=== PATIENT | female | born 2000 | race Caucasian/White ===

== ENCOUNTER 2021-10-17 18:00 | Emergency (ER) | payer OTHER ==
[~2021-10-17] VITALS: Ht 162.6 cm; Wt 108.4 kg
[2021-10-17] MEDS ORDERED: ALBUTEROL/IPRATROPIUM 3 ML NEB NEB ONE (18:30)
== END 2021-10-17 20:46 | disposition home or self-care (01) ==
LOC: ER 18:50
DX: R50.9 Fever, unspecified (principal); J40 Bronchitis, not specified as acute or chronic; R06.2 Wheezing; R05.9 Cough, unspecified; Z20.822 Contact with and (suspected) exposure to COVID-19
CPT/HCPCS: 71046; 94799; 99283; U0002

== ENCOUNTER 2022-03-18 05:48 | Emergency (ER) | payer OTHER ==
[~2022-03-18] VITALS: Ht 162.6 cm; Wt 108.4 kg
[2022-03-18] MEDS ORDERED: CEFTRIAXONE 1 GM VIAL IV SCH (06:00)
[2022-03-18] MEDS ORDERED: SODIUM CHLORIDE 0.9% IV SCH (06:00)
[2022-03-18] MEDS ORDERED: ACETAMINOPHEN 325 MG TAB PO ONE ×2 (06:15→11:15)
[2022-03-18 06:20] LABS: BASOPHILS % 0.2 % (0.0-1.0); EOSINOPHILS # (AUTO) 0.2 (0.0-0.4); EOSINOPHILS % 2.5 % (0.0-6.0); HEMATOCRIT 34.6 % (34.2-44.1); HEMOGLOBIN 11.2 g/dL (12.0-16.0); LYMPHOCYTES # (AUTO) 0.5 (1.0-3.2); LYMPHOCYTES % 5.1 % (18.0-39.1); MEAN CORPUSCULAR HEMOGLOBIN 29.5 pg (28-32); MEAN CORPUSCULAR HGB CONC 32.4 g/dL (31-35); MEAN CORPUSCULAR VOLUME 91.1 fL (81-99); MONOCYTES # (AUTO) 0.3 (0.2-0.8); MONOCYTES % 3.7 % (4.4-11.3); NEUTROPHILS # (AUTO) 7.9 (2.1-6.9); NEUTROPHILS % 87.4 % (38.7-80.0); PLATELET COUNT 202 x10e3/uL (140-360); RED CELL DISTRIBUTION WIDTH 13.3 % (11.7-14.4)
[2022-03-18 06:36] LABS: INR 0.98; PROTHROMBIN TIME 13.9 seconds (11.9-14.5)
[2022-03-18 06:37] LABS: PARTIAL THROMBOPLASTIN TIME 26.6 seconds (23.8-35.5)
[2022-03-18 06:44] LABS: ALANINE AMINOTRANSFERASE 10 IU/L (0-55); ALBUMIN 3.2 g/dL (3.5-5.0); ALBUMIN/GLOBULIN RATIO 0.8 (0.8-2.0); ALKALINE PHOSPHATASE 67 IU/L (40-150); ANION GAP 18.7 mmol/L (8-16); BLOOD UREA NITROGEN 6 mg/dL (7-26); BUN/CREATININE RATIO 10 (6-25); CARBON DIOXIDE 17 mmol/L (22-29); CHLORIDE 105 mmol/L (98-107); GLUCOSE 107 mg/dL (74-118); POTASSIUM 3.7 mmol/L (3.5-5.1); SODIUM 137 mmol/L (136-145)
[2022-03-18 06:49] LABS: AMPHETAMINES SCREEN,URINE NEGATIVE (NEGATIVE); BENZODIAZEPINES SCREEN,URINE NEGATIVE (NEGATIVE); PHENCYCLIDINE SCREEN,URINE NEGATIVE (NEGATIVE)
[2022-03-18 06:50] LABS: CLARITY,URINE CLOUDY (CLEAR); COLOR,URINE YELLOW (YELLOW)
[2022-03-18 06:54] LABS: LEUKOCYTE ESTERASE ,URINE NEGATIVE (NEGATIVE); NITRITE,URINE NEGATIVE (NEGATIVE)
[2022-03-18 06:58] LABS: KETONES,URINE 2+ (NEGATIVE); PROTEIN,URINE DIPSTICK TRACE (NEGATIVE); URINE UROBILINOGEN 1 mg/dL (0.2 - 1)
[2022-03-18] MEDS ORDERED: SODIUM CHLORIDE 0.9% 1000ML 2,000 ML IV SCH (07:00)
[2022-03-18 07:15] LABS: BACTERIA,URINE MODERATE /HPF; EPITHELIAL CELLS,URINE MANY /LPF; RBC,URINE 0-5 /HPF (0-5); WBC,URINE (MAN) 0-5 /HPF (0-5)
[2022-03-18] MEDS ORDERED: ONDANSETRON HCL INJ 2MG/ML 2ML 2 MG/ML VIAL IV STA (07:52)
[2022-03-18] MEDS ORDERED: IOPAMIDOL 370 MG/ML 100 ML INFUS..BTL INJ ONE (08:22)
[2022-03-18] MEDS ORDERED: ACETAMINOPHEN 325 MG TAB ONE (11:01)
[2022-03-18] MEDS ORDERED: SODIUM CHLORIDE 0.9% 1000ML 1,000 ML IV ONE (11:15)
[2022-03-18] MEDS ORDERED: ALBUTEROL/IPRATROPIUM 3 ML NEB NEB ONE (11:15)
[2022-03-18] MEDS ORDERED: ALBUTEROL/IPRATROPIUM 3 ML NEB ONE (11:20)
== END 2022-03-18 12:00 | disposition short-term general hospital (02) ==
LOC: ER 05:49
DX: O98.512 Other viral diseases complicating pregnancy, second trimester (principal); Z3A.21 21 weeks gestation of pregnancy; A41.89 Other specified sepsis; B97.89 Other viral agents as the cause of diseases classified elsewhere; Z20.822 Contact with and (suspected) exposure to COVID-19; O99.891 Other specified diseases and conditions complicating pregnancy; R00.0 Tachycardia, unspecified
CPT/HCPCS: 36415; 71045; 71260; 80053; 80307; 81001; 83605; 84484; 84702; 85025; 85610; 85730; 87040; 87086; 87400; 93005; 94640; 94799; 99285; J0456; J0696; J2405; J7030; J7050; Q9967; U0002